=== PATIENT | female | born 1985 | race Caucasian/White ===

== ENCOUNTER → 2020-09-04 | Outpatient (CLI) | payer OTHER ==
--- NOTE | 2020-09-04 16:14 | US ---
EXAMINATION TYPE: US transvaginal DATE OF EXAM: 09/04/2020 COMPARISON: NONE CLINICAL HISTORY: 35-year-old female N93.8 ABN UTERINE AND VAGINAL BLEEDING. DUB, heavy bleeding with clots TECHNIQUE: Transvaginal (TV). Date of LMP: irregular menses FINDINGS: EXAM MEASUREMENTS: Uterus: 8.5 x 4.7 x 5.2 cm Endometrial Stripe: 2.1 cm Right Ovary: 1.8 x 1.5 x 1.4 cm Left Ovary: 3.3 x 2.0 x 3.1 cm 1. Uterus: Anteverted . Myometrium slightly heterogeneous. 2. Endometrium: Excessively thickened and heterogeneous 3. Right Ovary: follicles noted 4. Left Ovary: A cystic to slightly hypoechoic structure measuring 2.0 x 2.0 x 1.8cm 5. Bilateral Adnexa: appears wnl 6. Posterior cul-de-sac: wnl IMPRESSION: 1. Thickened and heterogeneous endometrium measuring up to 2.1 cm. Follow-up ultrasound in 6-8 weeks to reassess the endometrial stripe thickness. If thickening and bleeding persists, biopsy can be cons idered. Endometrial hyperplasia, underlying polyps, and less likely endometrial carcinoma are differe ntial considerations. 2. Suspect a 2.0 cm hemorrhagic cyst/follicle within the left ovary. This should also be reassessed a t the patient's follow-up.
== END | disposition home or self-care (01) ==
LOC: RADUSWWP 14:49
PROVIDERS: ATTEND Family Medicine
DX: R93.89 Abnormal findings on diagnostic imaging of other specified body structures (principal); N93.8 Other specified abnormal uterine and vaginal bleeding
CPT/HCPCS: 76830

== ENCOUNTER 2020-09-30 05:48 | Day surgery (SDC) | payer OTHER ==
[2020-09-23 14:45] VITALS: BMI 35.9
--- NOTE | 2020-09-28 08:23 | P.HPOB ---
History of Present Illness H&P Date: 09/28/20 Chief Complaint: Dysfunctional uterine bleeding This patient is a pleasant 35-year-old 6 para 4 female who presented to me for evaluation of dysfunctional bleeding. Patient's primary care physician ordered an ultrasound for her which showed endometrial thickening to 2.1 cm and it was heterogeneous. I discussed options with the patient and recommended sampling of this area therefore we'll proceed with hysteroscopy and D&C. Patient's bleeding has been such that she is had heavy daily bleeding with large clots with her menstrual cycles. This began in July and has continued on. Review of Systems Genitourinary: Reports as per HPI Menstruation: Reports as per HPI Past Medical History Past Medical History: Asthma History of Any Multi-Drug Resistant Organisms: MRSA Date of last positivie culture/infection: 08/2010 MDRO Source:: Right forearm Past Surgical History: Tubal Ligation Past Anesthesia/Blood Transfusion Reactions: No Reported Reaction Past Psychological History: Anxiety Smoking Status: Former smoker Past Alcohol Use History: None Reported, Rare Additional Past Alcohol Use History / Comment(s): Quit smoking 4 yrs ago, smoked for almost 20 yrs, 4-5 cigarettes daily. Past Drug Use History: None Reported - Past Family History Father Family Medical History: Cancer Additional Family Medical History / Comment(s): Liver cancer. Medications and Allergies Home Medications Medication Instructions Recorded Confirmed Type No Known Home Medications 09/23/20 09/23/20 History Allergies Allergy/AdvReac Type Severity Reaction Status Date / Time No Known Allergies Allergy Verified 09/23/20 14:47 Exam - OBG Physical Exam Abdomen: bowel sounds normal, no diffuse tenderness, no bruit present, no guarding noted, no hepatomegaly, no splenomegaly, no mass Vulva: both: normal Vagina: normal moisture, no discharge Cervix: no lesion, no discharge Uterus: normal size, normal contour Adnexa: both: normal Results Transvaginal ultrasound shows endometrial thickening to 2.1 cm. Assessment and Plan Assessment: This is a pleasant 35-year-old 6 para 4 female with several month history of dysfunctional uterine bleeding and endometrial thickening on ultrasound. Plan is hysteroscopy and D&C for further evaluation and treatment. Patient have discussed the surgery and risks including risks of infection, bleeding, possible injury bowel, bladder, vessels, and/or other organs. All the patient's questions are answered and a written consent is obtained. (1) Dysfunctional uterine bleeding Status: Chronic Code(s): N93.8 - OTHER SPECIFIED ABNORMAL UTERINE AND VAGINAL BLEEDING SNOMED Code(s): [id number]
[~2020-09-30 05:48] MED LIST: DEXAMETHASONE SOD PHOSPHATE 4 MG/ML 1 ML VIAL IV ONE; HYDROmorphone 0.5 MG/0.5 ML SYRINGE IVP PRN; LACTATED RINGERS 1,000 ML IV SCH; LIDOCAINE 1% (10MG/ML) FOR IV START INTRADERMA PRN; MIDAZOLAM 2 MG/2 ML VIAL IV PRN; ONDANSETRON 4 MG/2 ML VIAL IVP ONE; Pre Op ABX Message 1 EACH MISC MISCELLANE ONE
[2020-09-30] MEDS ORDERED: LIDOCAINE 1% INJ 10MG/ML (20 ML MDV) ONE (06:56)
[2020-09-30] MEDS ORDERED: fentaNYL (PF) 50 MCG/ML 2 ML AMP ONE (06:56)
[2020-09-30] MEDS ORDERED: PROPOFOL 10 MG/ML 20 ML VIAL IV ONE (06:56)
[2020-09-30] MEDS ORDERED: KETOROLAC 15 MG/ML 1 ML VIAL ONE (06:56)
--- NOTE | 2020-09-30 07:30 | P.OP ---
Date of Procedure: 09/30/20 Preoperative Diagnosis: Dysfunctional uterine bleeding Postoperative Diagnosis: Same Procedure(s) Performed: Hysteroscopy with dilation and curettage Anesthesia: MAC Surgeon: Leonardo Joseph Estimated Blood Loss (ml): 10 Urine output (ml): 10 Pathology: other (Uterine curettings) Condition: stable Disposition: PACU Indications for Procedure: Please see dictated H&P for intimate details of this patient's admission. Brief summary this is a pleasant 35-year-old multiparous patient who was referred to me for dysfunctional uterine bleeding and abnormal thickening on transvaginal ultrasound. Patient and I discussed treatment evaluation options and elected to proceed with hysteroscopy D&C for further evaluation. Patient understands the surgery and risks including risks of infection, bleeding, possible uterine perforation. All the patient's questions were answered written consent is obtained. Operative Findings: This patient had a normal-appearing endometrial cavity. Description of Procedure: This patient is taken to the operating room where she is laid in the supine position. She subsequently undergoes general mask anesthesia without incident. With an adequate level of anesthesia she's placed in the dorsal lithotomy position. She has a vaginal and perineal prep and drape. Examination under anesthesia shows a mid position uterus slightly enlarged. I first drain the bladder for 10 mL of clear urine. A weighted speculum was placed in the posterior vagina. The anterior lip cervix is grabbed with an Allis clamp. This time I sound the uterus to 9.5 cm. Gentle dilation is then done to allow the hysteroscope into the uterine cavity. Hysteroscopy is performed uterine cavity is visualized and appears normal without evidence of fibroids or polyps. The scope was then removed. Gentle dilation is then done to allow the polyp forceps and the uterine cavity. I do remove multiple pieces of tissue. These appear benign. This done a gentle but thorough 4 quadrant curettage is done for a generous amount of tissue is well. With this done the procedure is ended. The weighted speculum and Allis clamp are removed. All counts correct 3. There are no complications. Patient is awakened from anesthesia and taken recovery room in satisfactory condition.
[2020-09-30 07:32] VITALS: TEMP 97.2
[2020-09-30] MEDS ORDERED: LACTATED RINGERS 1,000 ML IV ONE (08:31)
[2020-09-30 09:05] VITALS: BP 112/69; PULSE 57; RESP 16
== END 2020-09-30 09:45 | disposition home or self-care (01) ==
LOC: OR 05:48
PROVIDERS: ATTEND Obstetrics & Gynecology
DX: N93.8 Other specified abnormal uterine and vaginal bleeding (principal); R93.89 Abnormal findings on diagnostic imaging of other specified body structures; J45.909 Unspecified asthma, uncomplicated; Z80.0 Family history of malignant neoplasm of digestive organs; Z86.14 Personal history of Methicillin resistant Staphylococcus aureus infection; Z87.891 Personal history of nicotine dependence
CPT/HCPCS: 81025; 88305; 58558; J1100; J2405; J2001; J3010; J1885; J2704; J1170

== ENCOUNTER 2021-03-16 16:08 | Emergency (ER) | payer OTHER ==
[2021-03-16] MEDS ORDERED: SODIUM CHLORIDE 0.9% 500 ML 500 ML IV STA (16:21)
[2021-03-16] MEDS ORDERED: HYDROmorphone 0.5 MG/0.5 ML SYRINGE IVP STA (16:21)
[2021-03-16] MEDS ORDERED: DIPH,PERTUS(ACELL)TETVAC-LF 0.5 ML VIAL IM ONE (16:21)
[2021-03-16 16:26] VITALS: BP 124/61; PULSE 70; TEMP 97.6
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
[2021-03-16 17:31] LABS: Basophils % (A) 0 %; Eosinophils # (A) 0.2 k/uL (0-0.7); Eosinophils % (A) 2 %; HCT 35.4 % (34.0-46.0); HGB 11.9 gm/dL (11.4-16.0); Lymphocytes # (A) 1.9 k/uL (1.0-4.8); Lymphocytes % (A) 25 %; MCH 31.4 pg (25.0-35.0); MCHC 33.7 g/dL (31.0-37.0); MCV 93.2 fL (80.0-100.0); Mean Platelet Volume 7.1; Monocytes # (A) 0.5 k/uL (0-1.0); Monocytes % (A) 6 %; Neutrophils # (A) 4.8 k/uL (1.3-7.7); Neutrophils % (A) 63 %; Platelet Count 351 k/uL (150-450); RDW 13.7 % (11.5-15.5); WBC 7.7 k/uL (3.8-10.6)
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
[2021-03-16 17:35] LABS: ALT 21 U/L (4-34); AST 25 U/L (14-36); African American GFR (CKD) >90 (>60 ml/min/1.73 sqM); Albumin 3.7 g/dL (3.5-5.0); Alcohol <10 mg/dL; Alkaline Phosphatase 73 U/L (38-126); Anion Gap 5 mmol/L; Blood Urea Nitrogen 18 mg/dL (7-17); Calcium 9.2 mg/dL (8.4-10.2); Carbon Dioxide 22 mmol/L (22-30); Chloride 109 mmol/L (98-107); Creatine Kinase 52 U/L (30-135); Glucose 103 mg/dL (74-99); Non-African American GFR(CKD) >90 (>60 ml/min/1.73 sqM); Potassium 3.8 mmol/L (3.5-5.1); Sodium 136 mmol/L (137-145); Total Bilirubin 0.3 mg/dL (0.2-1.3); Total Protein 6.5 g/dL (6.3-8.2)
[2021-03-16 17:41] LABS: Partial Thromboplastin Time 22.2 sec (22.0-30.0); Prothrombin Time 10.7 sec (9.0-12.0)
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
[2021-03-16 17:52] LABS: HCG,Qualitative Serum Not Detected
[2021-03-16 20:09] VITALS: RESP 17
== END 2021-03-16 18:15 | disposition home or self-care (01) ==
LOC: EC 16:08
DX: S40.022A Contusion of left upper arm, initial encounter (principal); S80.12XA Contusion of left lower leg, initial encounter; S40.812A Abrasion of left upper arm, initial encounter; Z23 Encounter for immunization; F41.9 Anxiety disorder, unspecified; Z87.891 Personal history of nicotine dependence; Z98.51 Tubal ligation status; V49.60XA Unspecified car occupant injured in collision with unspecified motor vehicles in traffic accident, initial encounter; Y92.410 Unspecified street and highway as the place of occurrence of the external cause
CPT/HCPCS: 99284; 96374; 96361; 90471; 36415; 93005; 86900; 86901; 80053; 82550; 84484; 85025; 85610; 85730; 86850; 84703; 80320; 72170; 73060; 73562; 73610; 71045; 72125; 90715; J1170

== ENCOUNTER → 2021-08-20 | Outpatient (CLI) | payer OTHER ==
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
== END | disposition home or self-care (01) ==
LOC: RADXRYALE 15:57
PROVIDERS: ATTEND Family Medicine
DX: M54.50 Low back pain, unspecified (principal)
CPT/HCPCS: 72110

== ENCOUNTER → 2021-10-08 | Outpatient (CLI) | payer OTHER ==
--- NOTE | 2021-10-08 13:36 | US ---
EXAMINATION TYPE: US venous doppler duplex LE BI DATE OF EXAM: 10/08/2021 1:20 PM COMPARISON: NONE CLINICAL HISTORY: R22.9 SWELLING, MASS AND LUMP. Swelling/pain. No hx of DVT. Patient not taking thin ners. SIDE PERFORMED: Bilateral TECHNIQUE: The lower extremity deep venous system is examined utilizing real time linear array sonog jaylon with graded compression, doppler sonography and color-flow sonography. VESSELS IMAGED: Common Femoral Vein Deep Femoral Vein Greater Saphenous Vein * Femoral Vein Popliteal Vein Small Saphenous Vein * Proximal Calf Veins (* superficial vessels) Right Leg: No evidence of DVT in veins imaged at this time. Left Leg: No evidence of DVT in veins imaged at this time. Patient's main area of concern was scanned at lateral left calf, no abnormalities seen at this time. IMPRESSION: No evidence of DVT at this time.
== END | disposition home or self-care (01) ==
LOC: RADUSWWP 12:54
DX: R22.9 Localized swelling, mass and lump, unspecified (principal)
CPT/HCPCS: 93970

== ENCOUNTER → 2022-01-20 | Outpatient (CLI) | payer OTHER ==
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
== END | disposition home or self-care (01) ==
LOC: RADUSWWP 13:48
PROVIDERS: ATTEND Family Medicine
DX: M79.605 Pain in left leg (principal); R20.8 Other disturbances of skin sensation; G57.32 Lesion of lateral popliteal nerve, left lower limb
CPT/HCPCS: 93922

== ENCOUNTER 2024-03-12 06:57 | Emergency (ER) | payer OTHER ==
--- NOTE | 2024-04-04 16:07 | US ---
EXAMINATION TYPE: US transvaginal DATE OF EXAM: 04/04/2024 COMPARISON: NONE CLINICAL INDICATION: Female, 39 years old with history of Bleeding; TECHNIQUE: Transvaginal (TV). Transabdominal sonographic images of the pelvis were acquired. Trans vaginal sonographic images were medically necessary to better assess the following anatomy: Date of LMP: Unknown EXAM MEASUREMENTS: Uterus: 8.8 x 5.1 x 6.2 cm Endometrial Stripe: 23 mm Right Ovary: Not visualized cm Left Ovary: 2.5 x 2.2 x 3.1 cm 1. Uterus: Anteverted wnl 2. Endometrium: Thickened no focal masses 3. Right Ovary: Obscured by overlying bowel gas 4. Left Ovary: Appropriate arterial and spectral venous and arterial waveforms. Dominant follicle me asuring up to 2.6 cm. Spectral, color and waveform doppler imaging shows good arterial and venous flow within the ovaries ; there is no evidence for ovarian torsion. 5. Bilateral Adnexa: wnl 6. Posterior cul-de-sac: Trace free fluid IMPRESSION: Mildly thickened endometrium measuring up to 20 mm correlate for endometrial hyperplasia.
== END 2024-03-12 12:43 | disposition home or self-care (01) ==
LOC: EC 06:57 → EDSTATUS 11:56 → EC 12:43
DX: E05.90 Thyrotoxicosis, unspecified without thyrotoxic crisis or storm (principal)
CPT/HCPCS: 76830; 93976; 99284

== ENCOUNTER → 2024-06-30 | Outpatient (CLI) | payer OTHER ==
--- NOTE | 2024-07-03 11:02 | MM ---
Reason for Exam: Screening (asymptomatic). Baseline mammogram. Patient History: Menarche at age 10. First Full-Term at age 20. Maternal aunt had breast cancer. Maternal aunt had breast cancer. Risk Values: Kari 5 year model risk: 0.5%. NCI Lifetime model risk: 9.0%. Prior Study Comparison: Patient's first Mammogram. No prior studies available for comparison. Tissue Density: The breasts are almost entirely fatty. Findings: Analyzed By CAD. Right breast: There is no suspicious group of microcalcifications or new suspicious mass. Left breast: There is no suspicious group of microcalcifications or new suspicious mass. Overall Assessment: Negative, BI-RAD 1 Management: Screening Mammogram of both breasts in [address] [facility] will attempt to contact patient to return for supplemental views and ultrasound if indicated. Patient should continue monthly self-breast exams. A clinical breast exam by your physician is recommended on an annual basis. This exam should not preclude additional follow-up of suspicious palpable abnormalities. Note on Kari scores and lifetime risk: 1. A Kari score greater than 3% is considered moderate risk. If this is the case, consider specialist referral to assess eligibility for a risk reducing agent. 2. If overall lifetime risk for the development of breast cancer is 20% or higher, the patient may qualify for future screening with alternating mammogram and breast MRI. [facility], , 07/03/2024 10:59 AM. Electronically signed and approved by: Trevor Monroy DO
== END | disposition home or self-care (01) ==
LOC: RADMAMWWP 10:45
PROVIDERS: ATTEND Family Medicine
DX: Z12.31 Encounter for screening mammogram for malignant neoplasm of breast (principal); Z80.3 Family history of malignant neoplasm of breast; R92.313 Mammographic fatty tissue density, bilateral breasts
CPT/HCPCS: 77067